=== PATIENT | female | born 1990 | race Caucasian/White ===

== ENCOUNTER 2017-05-21 02:20 | Emergency (ER) | payer BC ==
[~2017-05-21 02:20] MED LIST: BUPR100T8 PO; CIPR-255 PO; ESCI1TAB10 PO
[2017-05-21] MEDS ORDERED: DiphenhydrAMINE HCL 50 MG/ML VIAL ONE (02:58)
[2017-05-21] MEDS ORDERED: METOCLOPRAMIDE HCL INJ 5 MG/ML 2 ML VIAL ONE (02:59)
--- NOTE | 2017-05-21 04:13 | EMERGENCY ROOM VISIT NOTE ---
History First contact with patient: 03:47 Chief Complaint: HEADACHE Stated Complaint: HEADACHE, WOKE ME UP, NAUSEA, SOUND SENSITIVITY History of Present Illness The patient is a 26 year old female who presents to the Emergency Room with complaints of sudden onset headache that woke her up out of sleep that was 10 out of 10 that is now 8 out of 10. No imaging in the past. She has a history of migraines but this was different. She describes the headache as throbbing, ranging in severity 8 out of 10 in the base of the skull that wraps around to her eyes. 2 weeks ago she had similar episode. She does not have a neurologist. She normally takes Motrin for her pain. This helped minimally today. Patient was of nausea with photophobia. Patient denies chest pain, dyspnea, weakness, dysarthria, recent illness, cold symptoms, abdominal pain, vision problems, balance pollens. She is tolerating by mouth fluids and food. Patient felt fine yesterday. No alcohol or drug use. Review of Systems See HPI for pertinent positives & negatives. A total of 10 systems reviewed and were otherwise negative. Past Medical/Surgical History Medical Problems: (1) Anxiety (2) Suicidal ideation Migraines Family History Heart disease Hypertension Lung disease Social History Smoking Status: Never Smoker Alcohol Use: occasionally Marital Status: in relationship Housing Status: lives with significant other Occupation Status: employed Current/Historical Medications Scheduled Bupropion (Wellbutrin Sr), 100 MG PO BID Ciprofloxacin Hcl (Cipro), 1 TAB PO BID Escitalopram Oxalate (Lexapro), 20 MG PO DAILY Allergies Uncoded Allergies: APRICOTS (Allergy, Mild, RASH, 08/30/16) PEANUTS (Adverse Reaction, Intermediate, N/V, 08/30/16) Physical Exam Physical Exam VITALS: Vitals are noted on the nurse's note and reviewed by myself. Vital signs stable. GENERAL: Pleasant female, in no acute distress, nondiaphoretic, well-developed well-nourished. SKIN: The skin was without rashes, erythema, edema, or bruising. There is no tenting of the skin. Capillary reflex less than 2 seconds. HEAD: Normocephalic atraumatic. EARS: External auditory canals clear, tympanic membranes pearly moreno without erythema or effusion bilaterally. EYES: Pupils equal round and reactive to light and accommodation. Conjunctivae without injection, sclerae without icterus. Extraocular movements intact. NOSE: Patent, turbinates without inflammation or discharge. No sinus tenderness. MOUTH: Mucous membranes moist. Pharynx without erythema or exudate. Uvula midline. Airway patent. Tongue does not deviate. NECK: Supple without nuchal rigidity. No lymphadenopathy. No thyromegaly. Cervical spine is nontender. No JVD. HEART: Regular rate and rhythm without murmurs gallops or rubs. LUNGS: Clear to auscultation bilaterally without wheezes, rales or rhonchi. No dullness to percussion. No retractions or accessory muscle use. ABDOMEN: Positive bowel sounds x 4. Normal tympanic percussion. Soft, nontender, without masses or organomegaly. Mcintosh sign negative. No guarding or rebound tenderness. MUSCULOSKELETAL: No muscle atrophy, erythema, or edema noted. NEURO: Patient was alert and oriented to person place and time. Normal sensation to light and sharp touch. No focal neurological deficits. Cranial nerves II through XII grossly intact. No pronator drift. Cerebellar exam intact. Medical Decision & Procedures ED Course Prior records/ancillary studies reviewed. Additional history obtained from family. Triage Nursing notes reviewed. The patient's history was concerning for headache. Differential diagnosis: Etiologies such as migraine headache, meningitis, sinusitis, CO exposure, ICH, SAH, infection, tumor, headache, sinus thrombosis, arterial dissection, as well as others were entertained. Physical examination findings: As above. Non-focal. ER treatment provided: reglan, benadryl, NSS On reassessment the patient felt better. Diagnostics interpreted by me: Imaging studies: CT HEAD: No evidence of acute infarct, hemorrhage, mass or edema. No acute calvarial abnormality. The paranasal sinuses demonstrate minimal mucosal thickening within the sphenoid sinuses. The mastoid air cells are patent. No acute osseous abnormality. Radiologist: Ralf Castañeda MD This appears to be consistent with Exam and history seem consistent with migraine. Patient is neurovascularly and neurologically intact. CT imaging was done within one hour of onset of symptoms. This was negative. She had no nuchal rigidity. She was well-appearing. No signs of meningitis. No deficits on exam. Patient was advised follow-up family care tomorrow here in the ER sooner for headache, weakness, vision pollens, worsening signs or symptoms or as needed.. By the evaluation outlined above emergent etiologies such as meningitis, sinusitis, CO exposure, ICH, SAH, infection, temporal arteritis, tumor, sinus thrombosis, arterial dissection, as well as others were deemed relatively unlikely. The pt informed about the findings as listed above. All questions were answered and pleased with the treatment. Return instructions were outlined and the patient was discharged in stable condition. Referral: The patient was referred back to their primary care physician for follow-up in 2 to 3 days for a recheck of the current condition. Case reviewed with my attending Medical Decision As above Impression Primary Impression: Migraine Departure Information Dispostion Home / Self-Care Condition GOOD Referrals No Doctor, Assigned (PCP) Patient Instructions [facility] Additional Instructions DO NOT drive, drink alcohol, operate machinery, or perform dangerous activities today. You were given medications in the ER that can affect your ability to safely function or operate a vehicle. Rest today in a quiet, peaceful, dark environment and get a full 8-10 hrs of sleep tonight. Avoid loud noises, smoke/smoking, alcohol, bright lights, stress, or physical exertion today to minimize the chance the headache may return. Continue current medications. Ibuprofen(Motrin, Advil) may be used for fever or pain. Use 600mg every six hours as needed. Take with food. Avoid using more than 2400mg in a 24 hour period. Do not use 2400mg per day for more than three consecutive days without physician direction. Prolonged inappropriate use can lead to stomach upset or ulcers. (AND/OR) Acetaminophen(Tylenol) may be used for fever or pain. Use 1000mg every six hours as needed. Avoid using more than 3000mg in a 24 hour period. Return to the ER for passing out, worsening headache, vision problems, neck stiffness/pain, fevers, vomiting, worsening of your condition, or as needed. Follow up with your primary physician and/or a neurologist in 2-3 days for a recheck of your current condition. Problem Qualifiers Primary Impression: Migraine Migraine type: without aura Status migrainosus presence: without status migrainosus Intractability: not intractable Qualified Codes: G43.009 - Migraine without aura, not intractable, without status migrainosus
[2017-05-21 04:51] VITALS: BP 129/74; PULSE 71; O2SAT 98
--- NOTE | 2017-05-21 07:09 | DIAGNOSTIC IMAGING REPORT ---
CT SCAN OF THE BRAIN WITHOUT IV CONTRAST CLINICAL HISTORY: Headache. COMPARISON STUDY: No priors. TECHNIQUE: Unenhanced axial CT scan of the brain is performed from the vertex to the skull base. Automated dose control exposure was utilized. FINDINGS: Brain parenchyma: The brain parenchyma is normal in appearance. There is no hemorrhage, mass effect, or evidence of acute territorial ischemia by CT criteria. Zapata-white matter is preserved. No extra-axial fluid collection is seen. Ventricles, sulci, cisterns: Normal in configuration. Intracranial vasculature: The visualized intracranial vasculature at the skull base is normal in appearance. Calvarium: Unremarkable. Sinuses and mastoids: Mild mucosal thickening is seen in the right sphenoid sinus. The remaining visualized paranasal sinuses are clear. The mastoid air cells are well pneumatized. Orbits: The bony orbits are grossly intact. IMPRESSION: No acute intracranial abnormality. Electronically signed by: Kyle cOasio M.D. 05/21/2017 7:08 AM Dictated Date/Time: 05/21/2017 7:06 AM
== END 2017-05-21 04:52 | disposition home or self-care (01) ==
LOC: C.EDA 03:37
DX: G43.009 Migraine without aura, not intractable, without status migrainosus (principal); F41.9 Anxiety disorder, unspecified; Z82.49 Family history of ischemic heart disease and other diseases of the circulatory system